=== PATIENT | female | born 1950 | race Caucasian/White ===

== ENCOUNTER → 2020-06-26 | Outpatient (POV) | payer MEDICARE, OTHER ==
--- NOTE | 2020-06-28 11:32 | IRCOV ---
[facility] IR Consult Office Visit IR Consult Office Visit DATE: Jun 26, 2020 Patient agreed to this telephone consultation. I spent 30 minutes reviewing patient's records, imaging and talking to the patient. REASON FOR CONSULTATION/CHIEF COMPLAINT: Self-referred for varicose veins. 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 She describes both legs swelling and aching, worst at the end of the day. She describes bulging veins around the knees. She's had prior bilateral lower extremity venous stripping in 2013 and 2014. After that her symptoms improved for a couple of years but now they're back for the past year. She does wear knee-high compression stockings but states it digs into the veins of the knee and hurts. She denies dryness, itchiness or discoloration of the skin. She denies intermittent claudication or rest pain. No prior DVT. ALLERGIES: Please see below. HOME MEDICATIONS: Please see below. PAST MEDICAL HISTORY: None PAST SURGICAL HISTORY: Bilateral knee replacement Left hip replacement FAMILY HISTORY: Family history of varicose veins SOCIAL HISTORY: Ex-smoker quit in 1999. Denies alcohol or drugs. REVIEW OF SYSTEMS: Otherwise negative. PHYSICAL EXAMINATION: Bilateral lower extremity swelling to above the knees. There are bulging veins medial to the knees. No skin discoloration of the lower extremities. No hemosiderin deposition. LABORATORY DATA: None. Imaging: No recent imaging. I reviewed her right lower extremity venous reflux study from March 2015 at which time she had right GSV reflux. However, this was pre-vein stripping. ASSESSMENT/PLAN: 70-year-old female complaining of bilateral lower extremity varicose veins associated with pain and swelling. She will need a bilateral lower extremity standing venous reflux study to evaluate further. We will schedule the patient for the study. We will also give her a prescription for bilateral thigh-high compression stockings which she is encouraged to wear during the day. Thank you for this referral. [facility]c PCP ALIYAH KENYON MD Jun 28, 2020 11:32
== END ==
LOC: M IRPOV 09:12
PROVIDERS: ATTEND Radiology Diagnostic Radiology
DX: I83.813 Varicose veins of bilateral lower extremities with pain (principal); Z96.653 Presence of artificial knee joint, bilateral; Z87.891 Personal history of nicotine dependence

== ENCOUNTER → 2020-08-08 | Outpatient (CLI) | payer MEDICARE, OTHER ==
--- NOTE | 2020-08-08 15:07 | REP ---
INDICATION: VARICOSE VEINS COMPARISON: 03/14/2015. TECHNIQUE: Bilateral lower extremity deep vein duplex ultrasound for thrombus and Bilateral superficial vein and deep vein duplex ultrasound for reflux. FINDINGS: Bilateral lower extremity deep vein duplex ultrasound for thrombus: The deep veins demonstrate normal compression, normal Doppler color flow and normal Doppler waveforms with respiration augmentation from the popliteal veins to the common femoral veins bilaterally. Bilateral superficial and deep vein duplex ultrasound for reflux: Right lower extremity: There is no anterior accessory GSV as an anatomic variant. The right GSV was ablated approximately 5 years ago. There is no flow in the GSV. There is flow in the LSV, however there is no LSV reflux. There is reflux in the proximal SFV. There is no reflux in the mid SFV, distal SFV or popliteal veins. Left lower extremity: There is an anterior accessory greater saphenous vein with reflux. There is reflux in: Greater saphenous vein at the femoral junction, mid greater saphenous vein, greater saphenous vein at the knee, proximal SFV, mid SFV, distal SFV. There is no reflux in the popliteal vein. The LSV is not visualized. IMPRESSION: Bilateral lower extremity deep vein duplex ultrasound for thrombus: There is no deep vein thrombus in the right or left lower extremities. Bilateral lower extremity duplex venous ultrasound for reflux: Right lower extremity: There is reflux in the in the proximal SFV. The right greater saphenous vein has been ablated. Left lower extremity: There is reflux throughout the greater saphenous vein and in the proximal, mid and distal SFV. <Electronically signed by Aditya Story > 08/08/20 [id number]
== END ==
LOC: M RAD 10:15
PROVIDERS: ATTEND Radiology Diagnostic Radiology
DX: I83.893 Varicose veins of bilateral lower extremities with other complications (principal)

== ENCOUNTER → 2020-10-30 | Outpatient (REF) | payer MEDICARE, OTHER | LOC: M LAB REF 09:21 | PROVIDERS: ATTEND Physician Assistant | DX: C44.01 Basal cell carcinoma of skin of lip (principal) ==

== ENCOUNTER → 2023-04-29 | Outpatient (REF) | payer MEDICARE, OTHER | LOC: EEVIPCON 17:05 → M LAB REF 17:05 | PROVIDERS: ATTEND Family Medicine | DX: R82.90 Unspecified abnormal findings in urine (principal) ==

== ENCOUNTER → 2024-03-03 | Outpatient (REF) | payer MEDICARE, OTHER | LOC: M LAB REF 17:17 | PROVIDERS: ATTEND Physician Assistant | DX: R39.15 Urgency of urination (principal) ==

== ENCOUNTER → 2024-03-16 | Outpatient (CLI) | payer MEDICARE, OTHER | LOC: M RAD 08:18 | PROVIDERS: ATTEND Physician Assistant | DX: Z12.2 Encounter for screening for malignant neoplasm of respiratory organs (principal); Z87.891 Personal history of nicotine dependence; I25.10 Atherosclerotic heart disease of native coronary artery without angina pectoris; Z90.49 Acquired absence of other specified parts of digestive tract; N28.1 Cyst of kidney, acquired ==

== ENCOUNTER → 2024-08-04 | Outpatient (REF) | payer MEDICARE, OTHER | LOC: M LAB REF 16:54 | PROVIDERS: ATTEND Physician Assistant | DX: J02.9 Acute pharyngitis, unspecified (principal) ==

== ENCOUNTER → 2024-09-01 | Outpatient (REF) | payer MEDICARE, OTHER | LOC: M LAB REF 16:55 | PROVIDERS: ATTEND Physician Assistant | DX: N39.0 Urinary tract infection, site not specified (principal) ==